=== PATIENT | female | born 1970 ===

== ENCOUNTER 2019-07-04 16:27 | Inpatient (IN) ==
[2019-07-04] MEDS ORDERED: MORPHINE 4 MG/1 ML VIAL IV PRN (18:52)
[2019-07-04] MEDS ORDERED: ALBUTEROL 2.5 MG/3 ML NEB RESP TX PRN (18:52)
[2019-07-04] MEDS ORDERED: ONDANSETRON 4 MG/2 ML VIAL IV PRN (18:52)
[2019-07-04] MEDS ORDERED: SODIUM CHLORIDE 0.9% 1,000 ML IV SCH (19:00)
[2019-07-04] MEDS ORDERED: INFLUENZA VIRUS VACCINE 0.5 ML SYRINGE IM ONE (19:01)
[2019-07-04] MEDS ORDERED: PNEUMOCOCCAL VACCINE (23 VALENT) 0.5 ML VIAL IM ONE (19:01)
[2019-07-04] MEDS ORDERED: LORazepam 2 MG/1 ML VIAL IV PRN (19:06)
[2019-07-04] MEDS ORDERED: SODIUM CHLORIDE 0.45% 1,000 ML IV SCH (19:30)
[2019-07-04 19:51] LABS: Basophils # 0.1 10*3/uL (0.0-0.2); Basophils % 0.9 % (0.0-0.8); Eosinophils % 0.2 % (0.00-10.9); Hematocrit 42.9 VOL% (35.7-47.0); Hemoglobin 13.3 GM/DL (12.0-16.0); Immature Granulocytes % 0.2 %; Immature Granulocytes Absolute 0.01 #; Lymphocytes % 0.7 % (21.3-54.2); Mean Corpuscular Volume 104.6 FL (87-102); Mean Platelet Volume 11.7 FL (9.6-12.0); Monocytes % 2.8 % (1.7-12.7); NRBC # 0.06 10*3/uL; Neutrophils % 95.2 % (38.7-73.9); Platelet Count 134 T/CUMM (130-400); Red Cell Distribution Width 15.4 % (9.3-17.3); White Blood Count 5.6 T/CUMM (4-12)
[2019-07-04] MEDS: NOREPINEPHRINE 8 MG in SODIUM CHLORIDE 0.9% 242 ML IV PRN (19:59)
[2019-07-04] MEDS: PANTOPRAZOLE 40 MG VIAL IV SCH (20:03)
[2019-07-04 20:07] LABS: Bilirubin,Total 0.7 MG/DL (0.2-1.0); Calcium 6.8 MG/DL (8.5-10.1); Osmolality,Calculated 297.7 MOS/KG (273-304)
[2019-07-04] MEDS ORDERED: DEXTROSE 10% 250 ML IV ONE (20:15)
[2019-07-04] MEDS: ALBUTEROL/IPRATROPIUM 3 ML NEB RESP TX SCH (20:17)
[2019-07-04 20:19] LABS: Anisocytosis 1+; Band Neutrophils 40 % (0-10); Burr Cells Few; Eosinophils 1 % (0-10); Lymphocytes 1 % (20-55); Macrocytosis 1+; Metamyelocytes 11 %; Nucleated Red Blood Cells 1 (0-5); Platelet Estimate Normal; Poikilocytosis Few; Polychromasia Slight; Segmented Neutrophils 45 % (50-85); Total Cells Counted 100
[2019-07-04] MEDS ORDERED: DEXTROSE 10% 250 ML BAG IV ONE (20:21)
[2019-07-04] MEDS ORDERED: SODIUM BICARBONATE 50 MEQ/50 ML VIAL IV ONE (20:26)
[2019-07-04] MEDS ORDERED: DEXTROSE 5% NACL 0.45% 1,000 ML IV SCH (20:30)
[2019-07-04] MEDS: PIPERACILLIN/TAZOBACTAM 3,375 MG in SODIUM CHLORIDE 0.9% 100 ML IV SCH (20:46)
[2019-07-04] MEDS: DEXTROSE 5% NACL 0.45% 1,000 ML IV SCH (20:47)
[2019-07-04] MEDS ORDERED: SODIUM BICARB INJ 50 MEQ in SODIUM CHLORIDE 0.45% 1,000 ML IV SCH (21:00)
[2019-07-04 21:18] LABS: ABG Base Excess -15.7 MMOL/L (-2.5-2.5); ABG HCO3 12.7 MMOL/L (20-26); ABG Oxygen Saturation 96.7 % (95-100); ABG PCO2 62.8 MM HG (35-48); ABG TCO2 15.7 MMOL/L (23-27)
[2019-07-04 21:19] LABS: ABG PH 7.027 (7.35-7.45)
[2019-07-05] MEDS: ALBUTEROL/IPRATROPIUM 3 ML NEB RESP TX SCH ×4 (00:22→19:40)
[2019-07-05] MEDS: NOREPINEPHRINE 8 MG in SODIUM CHLORIDE 0.9% 242 ML IV PRN ×7 (01:42→23:08)
[2019-07-05] MEDS: DEXTROSE 5% NACL 0.45% 1,000 ML IV SCH ×3 (02:29→13:42)
[2019-07-05 04:15] LABS: Amorphous Crystals,Urine Occasional /HPF (Few); Apearance,Urine CLOUDY (Clear); Bilirubin,Urine Negative (Negative); Blood, Urine Large mg/dL (Negative); Glucose,Urine (UA) Negative (Negative); Ketones,Urine Negative (Negative); Nitrite,Urine Negative (Negative); Protein,Urine 100 MG/DL; RBC,Urine 2582 /HPF (0-4); Urine Color Amber (Yellow); Urine Specific Gravity 1.038 (1.001-1.035); Urine Urobilinogen < 2.0 EU/DL (0.2-1.0)
[2019-07-05] MEDS: PHENYLEPHRINE DRIP 40 MG/250 ML PREMIX IV PRN ×8 (04:24→22:32)
[2019-07-05 04:38] LABS: Basophils # 0.1 10*3/uL (0.0-0.2); Basophils % 1.1 % (0.0-0.8); Hematocrit 41.1 VOL% (35.7-47.0); Hemoglobin 12.8 GM/DL (12.0-16.0); Immature Granulocytes % 0.4 %; Immature Granulocytes Absolute 0.03 #; Lymphocytes # 0.1 10*3/uL (1.4-4.0); Lymphocytes % 1.4 % (21.3-54.2); Mean Corpuscular HGB Conc 31.1 GM/DL (32-36); Mean Corpuscular Volume 104.1 FL (87-102); Mean Platelet Volume 11.4 FL (9.6-12.0); Monocytes % 4.7 % (1.7-12.7); NRBC # 0.08 10*3/uL; Neutrophils % 92.4 % (38.7-73.9); Platelet Count 121 T/CUMM (130-400); Red Blood Count 3.95 MC/CUMM (3.8-5.5); Red Cell Distribution Width 15.1 % (9.3-17.3); White Blood Count 8.3 T/CUMM (4-12)
[2019-07-05 04:42] LABS: ABG Base Excess -15.9 MMOL/L (-2.5-2.5); ABG HCO3 12.6 MMOL/L (20-26); ABG Oxygen Saturation 94.9 % (95-100); ABG PO2 89.2 MM HG (80-95); ABG TCO2 17.1 MMOL/L (23-27)
[2019-07-05 04:45] LABS: ABG PCO2 73.3 MM HG (35-48); ABG PH 6.993 (7.35-7.45)
[2019-07-05] MEDS ORDERED: SODIUM BICARBONATE 50 MEQ/50 ML VIAL IV ONE (04:59)
[2019-07-05 05:10] LABS: Band Neutrophils 24 % (0-10); Lymphocytes 4 % (20-55); Metamyelocytes 3 %; Myelocytes 3 %; Nucleated Red Blood Cells 1 (0-5); Segmented Neutrophils 62 % (50-85); Total Cells Counted 100
[2019-07-05 05:11] LABS: Hypochromasia Slight; Macrocytosis Slight; Platelet Estimate Normal
[2019-07-05] MEDS ORDERED: DEXTROSE 10% 250 ML BAG IV ONE (05:16)
[2019-07-05 05:39] LABS: Albumin 1.9 G/DL (3.4-5.0); Bilirubin,Total 1.1 MG/DL (0.2-1.0); Calcium 6.3 MG/DL (8.5-10.1); Total Protein 4.2 G/DL (6.4-8.3)
[2019-07-05] MEDS: ACETAMINOPHEN 325 MG TABLET PO PRN ×2 (09:14→21:41)
[2019-07-05] MEDS: PIPERACILLIN/TAZOBACTAM 3,375 MG in SODIUM CHLORIDE 0.9% 100 ML IV SCH ×2 (09:18→21:41)
[2019-07-05] MEDS: methylPREDNISolone SOD SUC 40 MG/1 ML VIAL IV SCH ×2 (09:48→18:15)
[2019-07-05] MEDS: DEXTROSE 10% 1,000 ML IV SCH ×2 (10:00→21:24)
[2019-07-05] MEDS ORDERED: IBUPROFEN 800 MG TABLET PO PRN (11:16)
[2019-07-05] MEDS: DOPamine 800 MG/250 ML PREMIX IV PRN (12:12)
[2019-07-05 14:50] LABS: ABG Base Excess -15.4 MMOL/L (-2.5-2.5); ABG HCO3 12.9 MMOL/L (20-26); ABG PCO2 53.8 MM HG (35-48); ABG PO2 68.7 MM HG (80-95); ABG TCO2 14.6 MMOL/L (23-27); Allen Test Positive; Pt O2 Delivery Device Ventilator
[2019-07-05] MEDS: SODIUM BICARB INJ 100 MEQ in DEXTROSE 5% 1,000 ML IV SCH ×2 (16:26→23:49)
[2019-07-05 16:31] VITALS: BP 84/49
[2019-07-05] MEDS: PANTOPRAZOLE 40 MG VIAL IV SCH (18:16)
[2019-07-06] MEDS: PHENYLEPHRINE DRIP 40 MG/250 ML PREMIX IV PRN ×2 (00:51→02:52)
[2019-07-06] MEDS: ALBUTEROL/IPRATROPIUM 3 ML NEB RESP TX SCH ×4 (01:46→20:03)
[2019-07-06] MEDS: methylPREDNISolone SOD SUC 40 MG/1 ML VIAL IV SCH ×3 (02:11→17:15)
[2019-07-06] MEDS: NOREPINEPHRINE 8 MG in SODIUM CHLORIDE 0.9% 242 ML IV PRN ×2 (02:32→05:52)
[2019-07-06 03:56] LABS: ABG HCO3 11.8 MMOL/L (20-26); ABG Oxygen Saturation 95.8 % (95-100); ABG PCO2 42.4 MM HG (35-48); ABG PO2 89.6 MM HG (80-95); Allen Test Positive; Pt O2 Delivery Device Ventilator
[2019-07-06 04:18] LABS: ABG PH 7.088 (7.35-7.45)
[2019-07-06 04:19] LABS: HIV Antigen/Antibody Result Nonreactive (Nonreactive); Hepatitis B Surface Ag Quant < 0.10 Index; Hepatitis B Surface Ag Result Negative (Negative); Hepatitis C Virus Ab Quant 0.05 Index; Hepatitis C Virus Ab Result Negative (Negative)
[2019-07-06 04:42] LABS: Basophils % 0.1 % (0.0-0.8); Hematocrit 36.1 VOL% (35.7-47.0); Hemoglobin 11.5 GM/DL (12.0-16.0); Immature Granulocytes % 0.7 %; Immature Granulocytes Absolute 0.12 #; Lymphocytes # 0.4 10*3/uL (1.4-4.0); Lymphocytes % 2.2 % (21.3-54.2); Mean Corpuscular HGB Conc 31.9 GM/DL (32-36); Mean Corpuscular Volume 102.3 FL (87-102); Mean Platelet Volume 12.1 FL (9.6-12.0); Monocytes % 4.3 % (1.7-12.7); NRBC # 0.06 10*3/uL; Neutrophils % 92.7 % (38.7-73.9); Platelet Count 83 T/CUMM (130-400); Red Blood Count 3.53 MC/CUMM (3.8-5.5); Red Cell Distribution Width 15.8 % (9.3-17.3); White Blood Count 17.4 T/CUMM (4-12)
[2019-07-06] MEDS: PHENYLEPHRINE INJ 160 MG in SODIUM CHLORIDE 0.9% 234 ML IV PRN ×3 (04:43→22:19)
[2019-07-06 05:14] LABS: Osmolality,Calculated 290.2 MOS/KG (273-304)
[2019-07-06 05:26] LABS: Calcium 5.6 MG/DL (8.5-10.1)
[2019-07-06] MEDS: NOREPINEPHRINE 16 MG in SODIUM CHLORIDE 0.9% 234 ML IV PRN ×3 (05:52→21:02)
[2019-07-06] MEDS ORDERED: CALCIUM GLUCONATE 2,000 MG in SODIUM CHLORIDE 0.9% 100 ML IV ONE (06:00)
[2019-07-06 06:53] LABS: Band Neutrophils 20 % (0-10); Lymphocytes 3 % (20-55); Metamyelocytes 10 %; Myelocytes 1 %; Segmented Neutrophils 61 % (50-85); Total Cells Counted 100
[2019-07-06 06:54] LABS: Burr Cells Few
[2019-07-06 06:55] LABS: Macrocytosis Slight; Platelet Estimate Decreased
[2019-07-06] MEDS: SODIUM BICARB INJ 100 MEQ in DEXTROSE 5% 1,000 ML IV SCH ×3 (07:38→22:56)
[2019-07-06] MEDS: PIPERACILLIN/TAZOBACTAM 3,375 MG in SODIUM CHLORIDE 0.9% 100 ML IV SCH (08:49)
[2019-07-06] MEDS: DOPamine 800 MG/250 ML PREMIX IV PRN ×2 (12:45→19:25)
[2019-07-06] MEDS: cefTRIAXone 1,000 MG in SYRINGE 1 EACH IV SCH (12:49)
[2019-07-06] MEDS: PANTOPRAZOLE 40 MG VIAL IV SCH (13:00)
[2019-07-06 13:15] LABS: Hematocrit 34.9 VOL% (35.7-47.0); Hemoglobin 11.2 GM/DL (12.0-16.0)
[2019-07-06] MEDS: DEXTROSE 10% 1,000 ML IV SCH (18:57)
[2019-07-06 21:08] LABS: Hematocrit 34.6 VOL% (35.7-47.0); Hemoglobin 11.6 GM/DL (12.0-16.0)
[2019-07-07] MEDS: methylPREDNISolone SOD SUC 40 MG/1 ML VIAL IV SCH ×2 (01:09→08:57)
[2019-07-07] MEDS: PANTOPRAZOLE 40 MG VIAL IV SCH (01:09)
[2019-07-07] MEDS: ACETAMINOPHEN 325 MG TABLET PO PRN (01:15)
[2019-07-07] MEDS: ALBUTEROL/IPRATROPIUM 3 ML NEB RESP TX SCH ×3 (01:49→13:32)
[2019-07-07 03:37] LABS: ABG Base Excess -14.1 MMOL/L (-2.5-2.5); ABG HCO3 13.4 MMOL/L (20-26); ABG Oxygen Saturation 98.7 % (95-100); ABG PCO2 31.7 MM HG (35-48); ABG PH 7.213 (7.35-7.45); ABG TCO2 12.2 MMOL/L (23-27)
[2019-07-07 03:58] LABS: Hematocrit 34.3 VOL% (35.7-47.0); Hemoglobin 11.5 GM/DL (12.0-16.0); Immature Granulocytes % 1.4 %; Immature Granulocytes Absolute 0.31 #; Lymphocytes # 0.4 10*3/uL (1.4-4.0); Lymphocytes % 1.7 % (21.3-54.2); Mean Corpuscular HGB Conc 33.5 GM/DL (32-36); Mean Corpuscular Volume 97.7 FL (87-102); Mean Platelet Volume 12.5 FL (9.6-12.0); Monocytes % 2.5 % (1.7-12.7); Neutrophils % 94.4 % (38.7-73.9); Red Blood Count 3.51 MC/CUMM (3.8-5.5); Red Cell Distribution Width 15.8 % (9.3-17.3); White Blood Count 22.8 T/CUMM (4-12)
[2019-07-07 04:05] LABS: Platelet Count 39 T/CUMM (130-400)
[2019-07-07 04:21] LABS: Band Neutrophils 8 % (0-10); Burr Cells Few; Hypochromasia Slight; Lymphocytes 1 % (20-55); Macrocytosis Slight; Metamyelocytes 2 %; Segmented Neutrophils 81 % (50-85); Total Cells Counted 100
[2019-07-07] MEDS: NOREPINEPHRINE 16 MG in SODIUM CHLORIDE 0.9% 234 ML IV PRN ×2 (04:21→11:54)
[2019-07-07 04:22] LABS: Platelet Estimate Decreased
[2019-07-07 04:34] LABS: Albumin 1.5 G/DL (3.4-5.0); Bilirubin,Total 2.9 MG/DL (0.2-1.0); Osmolality,Calculated 290.4 MOS/KG (273-304); Total Protein 4.1 G/DL (6.4-8.3)
[2019-07-07 04:37] LABS: Calcium 5.6 MG/DL (8.5-10.1)
[2019-07-07] MEDS ORDERED: CALCIUM GLUCONATE 2,000 MG in SODIUM CHLORIDE 0.9% 100 ML IV ONE (05:02)
[2019-07-07 05:45] LABS: Hematocrit 37.7 VOL% (35.7-47.0); Hemoglobin 12.1 GM/DL (12.0-16.0)
[2019-07-07] MEDS: PHENYLEPHRINE INJ 160 MG in SODIUM CHLORIDE 0.9% 234 ML IV PRN ×2 (06:16→14:00)
[2019-07-07] MEDS: DEXTROSE 10% 1,000 ML IV SCH (06:35)
[2019-07-07] MEDS: DOPamine 800 MG/250 ML PREMIX IV PRN (06:38)
[2019-07-07] MEDS: SODIUM BICARB INJ 100 MEQ in DEXTROSE 5% 1,000 ML IV SCH ×2 (06:54→07:15)
[2019-07-07] MEDS ORDERED: MENTHOL/ZINC OXIDE OINT 71 GM JAR TOP SCH (10:00)
[2019-07-07] MEDS: cefTRIAXone 1,000 MG in SYRINGE 1 EACH IV SCH (10:32)
[2019-07-07] MEDS ORDERED: FAMOTIDINE 20 MG/2 ML VIAL IV SCH (11:00)
[2019-07-07] MEDS ORDERED: LORazepam 2 MG/1 ML VIAL IV PRN (11:58)
[2019-07-07] MEDS: MORPHINE 4 MG/1 ML VIAL IV PRN ×2 (16:19→17:14)
== END 2019-07-07 18:47 | disposition expired | DRG 917 ==
LOC: N.CC 18:29 → SUATTDRO 18:29
PROVIDERS: ADMIT Internal Medicine; ATTEND Internal Medicine